=== PATIENT | male | born 1965 | race Caucasian/White ===

== ENCOUNTER 2020-11-13 06:31 | Day surgery (SDC) | payer OTHER ==
[2020-11-12 16:27] VITALS: BMI 27.0
[~2020-11-13 06:31] MED LIST: Fentanyl 100 MCG/2 ML VIAL ONE; Fluorouracil 100 MG, Enoxaparin Sodium 25 MG, EPINEPHrine 0.3 MG in Ophthalmic Irrigati... IRR SCH; Midazolam HCl 2 mg/2 ml Vial ONE
[2020-11-13] MEDS ORDERED: Phenylephrine 2.5% Ophth Soln 5 ML BOT ONE (06:36)
[2020-11-13] MEDS ORDERED: Cyclopentolate 1% Ophth Drops 15 ML BOT ONE (06:36)
[2020-11-13] MEDS ORDERED: Famotidine/PF 20 mg/2ml Vial ONE (08:08)
[2020-11-13] MEDS ORDERED: Ondansetron PF 4 MG/2 ML Vial ONE (08:11)
[2020-11-13] MEDS ORDERED: Lidocaine 1% PF 5 ML VIAL ONE ×2 (08:11)
[2020-11-13] MEDS ORDERED: CEFAZOLIN 1 GM VIAL ONE (08:11)
[2020-11-13] MEDS ORDERED: Bupivacaine PF 0.75% SDV 10 ML ONE (08:11)
[2020-11-13] MEDS ORDERED: PROPOFOL 200 MG/20 ML VIAL ONE (08:11)
[2020-11-13] MEDS ORDERED: Metoclopramide HCl 10 MG/2 ML VIAL ONE (08:11)
[2020-11-13] MEDS ORDERED: Triamcinolone 40 MG/ML VIAL ONE (08:11)
[2020-11-13] MEDS ORDERED: PHENYLEPHRINE-NS 100 MCG/ML 10 ML SYRINGE ONE (08:11)
[2020-11-13] MEDS ORDERED: Maxitrol 0.1% Opth Oint 3.5 GM TUBE ONE (08:11)
[2020-11-13] MEDS ORDERED: Lidocaine 4% PF 5 ML AMP ONE (08:11)
== END 2020-11-13 11:37 | disposition home or self-care (01) ==
LOC: SDC 06:31
PROVIDERS: ATTEND Ophthalmology Retina Specialist
PROC: 08T43ZZ Resection of Right Vitreous, Percutaneous Approach (ICD-10-PCS; principal; 2020-11-13)
DX: H33.021 Retinal detachment with multiple breaks, right eye (principal); F17.210 Nicotine dependence, cigarettes, uncomplicated
CPT/HCPCS: 67025; J0171; J0690; J1650; J2250; J2405; J2704; J2765; J3010; J3301; J3490; J9190; S0028

== ENCOUNTER 2022-01-07 11:36 | Outpatient (CLI) | payer BC ==
[2022-01-07 13:12] LABS: #Basophils 0.1 10x3/uL (0.0-0.2); #Eosinphils 0.4 10x3/uL (0.0-0.5); #Neutrophils 4.8 10x3/uL (1.5-8.4); %Eosinophils 4.6 % (0.0-6.0); %Lymphocytes 22.1 % (18.0-47.0); %Monocytes 12.2 % (0.0-10.0); %Neutrophils 59.5 % (40.0-75.0); Hemoglobin 16.2 g/dL (13.5-17.5); Mean Corpuscular HGB CONC 33.1 g/dL (32.0-36.0); Mean Corpuscular Hemoglobin 29.2 pg (27.0-33.0); Mean Corpuscular Volume 88.4 fl (81.2-95.1); Mean Platelet Volume 8.9 fl (7.4-10.4); Platelet Count 417 10x3/uL (150-450); RBC Distribution Width 13.2 % (11.5-14.5); Red Blood Cell (RBC) Count 5.54 10x6/uL (4.32-5.72)
[2022-01-07 13:26] LABS: Anion Gap 14 mmol/L (10-20); BUN (Urea Nitrogen) 16 mg/dL (8.4-25.7); Calc. Creatinine Clearance 0 mL/min (70-130); Calcium 9.9 mg/dL (7.8-10.44); Carbon Dioxide 26 mmol/L (22-29); Chloride 104 mmol/L (98-107); Glucose 82 mg/dL (70-105); Potassium 4.3 mmol/L (3.5-5.1); Sodium 140 mmol/L (136-145)
== END 2022-01-07 11:37 | disposition home or self-care (01) ==
LOC: LABBT 11:36
PROVIDERS: ATTEND Specialist
DX: Z01.818 Encounter for other preprocedural examination (principal); D49.89 Neoplasm of unspecified behavior of other specified sites; Z20.822 Contact with and (suspected) exposure to COVID-19
CPT/HCPCS: 80048; 85025; 93005; 93010; U0003; U0005

== ENCOUNTER 2022-01-12 09:02 | Day surgery (SDC) | payer BC ==
[2022-01-08 12:41] VITALS: BMI 26.2
[2022-01-12] MEDS ORDERED: Acetaminophen 500 MG TAB ONE (09:34)
[2022-01-12] MEDS ORDERED: Ketorolac Tromethamine 30 MG/ML VIAL ONE (09:34)
[2022-01-12] MEDS ORDERED: fentaNYL Citrate/PF 100 MCG/2 ML SYRINGE ONE (11:20)
[2022-01-12] MEDS ORDERED: Bupivacaine 0.25% HCL 30 ML VIAL ONE (11:28)
[2022-01-12] MEDS ORDERED: Lidocaine 1% w/Epinephrine 1:100K 30 ML VIAL ONE (11:28)
[2022-01-12] MEDS ORDERED: Midazolam HCl 2 mg/2 ml Vial ONE (11:29)
[2022-01-12] MEDS ORDERED: CEFAZOLIN 2 GM VIAL ONE (11:32)
[2022-01-12] MEDS ORDERED: Sodium Chloride 0.9% 100 ML ONE (11:32)
[2022-01-12] MEDS ORDERED: Dexamethasone 20 MG/5 ML VIAL ONE (11:42)
[2022-01-12] MEDS ORDERED: Glycopyrrolate 0.2 MG/ML 5 ML SYRINGE ONE (11:42)
[2022-01-12] MEDS ORDERED: Lidocaine 1% PF 5 ML VIAL ONE (11:42)
[2022-01-12] MEDS ORDERED: PHENYLEPHRINE-NS 100 MCG/ML 10 ML SYRINGE ONE (11:42)
[2022-01-12] MEDS ORDERED: PROPOFOL 200 MG/20 ML VIAL ONE (11:42)
[2022-01-12] MEDS ORDERED: Rocuronium Bromide 10 MG/ML (10ML VIAL) ONE (11:42)
[2022-01-12] MEDS ORDERED: Ondansetron PF 4 MG/2 ML Vial ONE (11:42)
[2022-01-12] MEDS ORDERED: Bacitracin Zinc Ointment 30 gm TUBE ONE (12:32)
== END 2022-01-12 14:15 | disposition home or self-care (01) ==
LOC: SDC 09:02
PROVIDERS: ATTEND Specialist
PROC: 0JBD0ZZ Excision of Right Upper Arm Subcutaneous Tissue and Fascia, Open Approach (ICD-10-PCS; principal; 2022-01-12)
DX: D17.21 Benign lipomatous neoplasm of skin and subcutaneous tissue of right arm (principal); M19.90 Unspecified osteoarthritis, unspecified site; F17.210 Nicotine dependence, cigarettes, uncomplicated
CPT/HCPCS: 88304; 88323; J0690; J1100; J1885; J2250; J2405; J2704; J3490; S0020